=== PATIENT | female | born 1990 | race African-American/Black ===

== ENCOUNTER 2016-12-27 23:59 | Inpatient (IN) ==
[2016-12-28] MEDS ORDERED: ONDANSETRON 4 MG/2 ML VIAL IV PRN ×2 (00:10→20:12)
[2016-12-28] MEDS ORDERED: OXYTOCIN/LR 20 UNIT/1,000 ML BAG IV SCH (00:30)
[2016-12-28] MEDS: LACTATED RINGERS 1,000 ML IV SCH ×3 (00:33→17:36)
[2016-12-28 01:17] LABS: Basophils % 0.1 % (0.0-0.8); Eosinophils # 0.1 10*3/uL (0.0-0.87); Hematocrit 32.9 VOL% (35.7-47.0); Hemoglobin 11.7 GM/DL (12.0-16.0); Immature Granulocytes % 1.1 %; Immature Granulocytes Absolute 0.08 #; Lymphocytes # 1.6 10*3/uL (1.4-4.0); Lymphocytes % 21.4 % (21.3-54.2); Mean Corpuscular HGB Conc 35.6 GM/DL (32-36); Mean Corpuscular Hemoglobin 34 PG (27-34); Mean Corpuscular Volume 95.9 FL (87-102); Mean Platelet Volume 11.6 FL (9.6-12.0); Monocytes # 0.4 10*3/uL (0.11-0.8); Monocytes % 5.8 % (1.7-12.7); Neutrophils # 5.1 10*3/uL (1.4-7.4); Neutrophils % 70.6 % (38.7-73.9); Platelet Count 160 T/CUMM (130-400); Red Blood Count 3.43 MC/CUMM (3.8-5.5); Red Cell Distribution Width 12.8 % (9.3-17.3); White Blood Count 7.2 T/CUMM (4-12)
[2016-12-28 01:20] LABS: Apearance,Urine Slightly Hazy (Clear); Bilirubin,Urine Negative (Negative); Blood, Urine Negative (Negative); Calcium Oxalate Crystals,Urine Occasional /HPF (Few); Glucose,Urine (UA) Negative (Negative); Ketones,Urine Negative (Negative); Mucus,Urine Occasional /LPF (Occasional); Nitrite,Urine Negative (Negative); Protein,Urine Negative; RBC,Urine 1 /HPF (0-4); Squamous Epithelial Cell,Urine Occasional /HPF (0-10); Urine Color Yellow (Yellow); Urine Specific Gravity 1.015 (1.001-1.035); Urine Urobilinogen < 2.0 EU/DL (0.2-1.0); WBC,Urine 2 /HPF (0-6)
[2016-12-28 01:29] LABS: Albumin 2.9 G/DL (3.4-5.0); Bilirubin,Total 0.7 MG/DL (0.2-1.0); Calcium 9.1 MG/DL (8.5-10.1); Osmolality,Calculated 278.1 MOS/KG (273-304); Potassium 3.5 MMOL/L (3.5-5.1); Total Protein 6.4 G/DL (6.4-8.3)
--- NOTE | 2016-12-28 08:47 | OB/GYN History & Physical ---
History of Present Illness Chief complaint: Induction of labor at term History of present illness: Ms. Lozada is a 26 year old female Home Medications Medication Instructions Recorded Confirmed Type Vit No.130/Iron/Folic 1 each PO DAILY 10/12/16 12/28/16 History [ Vitamins] Allergies Allergy/AdvReac Type Severity Reaction Status Date / Time No Known Allergies Allergy Verified 08/30/16 13:22 12 point system: reviewed and no additional remarkable complaints except as stated Medical,Surgical,& Family Hx - Medical History Psychological: No history of: Anxiety Disorders, ADHD, Behavior Problems, Bipolar Disorder, Depression, Previous Suicide Attempt, Psychiatric/Substance Abuse Tx, Schizophrenia, Violent Behavior, Psychiatric Problems - Surgical History Cardiac Surgeries: Patient Denies: Cardiac Catheterization Thoracic Surgeries: Patient denies;: Organ Transplant, Lobectomy Neurologic Surgeries: Patient denies: Neurologic Surgery HEENT Surgeries: Patient denies: Tonsilectomy & Adenoidectomy Reproductive Surgeries: Patient denies;: Breast Surgery, Section, Dilation and Curettage, Genitourinary Surgery, Gynecologic Surgery, Hysterectomy, Tubal Ligation - Family History Family History: Reports;: Family Cancer (PT MOTHER), Family Heart Disease (MGM, PT MOTHER), Family Hypertension (PT MOTHER AND FATHER AND MGF) Denies;: Family Anesthesia Reaction, Family Diabetes, Family Hematology, Family Psychiatric Problems, Family Stroke, Additional Family History - Social History Smoking Status: Never smoker Frequency of Alcohol Use: None Type of Drug Use: None Exam ENVIRONMENTAL SERVICES TECH - Constitutional Vitals: Vital Signs Temp Pulse Resp BP 12/28/16 04:00 97.6 F 70 18 103/59 General appearance: no acute distress - Antepartum / Post Antepartum Exam Cervix - Dilatation: 3 cm Effacement: 70% Station: -3 Rupture: Artificial rupture membranes with clear fluid Presentation: Vertex Heart Rate: 150s [place]: Contractions continue a regular - Head Head exam: Present: normocephalic - Neck Neck exam: Present: normal inspection - Respiratory Respiratory exam: Present: clear to auscultation bilaterally - Cardiovascular Cardiovascular exam: Present: regular rate and rhythm - GI/Abdominal GI/Abdominal exam: Present: normal bowel sounds, soft - Extremities Exam Extremities exam: Present: normal inspection - Back Exam Back exam: Present: normal inspection - Neurological Exam Neurological exam: Present: alert, oriented X3 - Psychiatric Psychiatric exam: Present: normal affect, normal mood - Skin Skin exam: Present: normal color, warm Assessment and Plan (1) 39 weeks gestation of Status: Acute Assessment and plan: Patient AROM with clear fluid. Continue Pitocin induction of labor with expectant vaginal delivery. Pain management per patient request. Current Visit: Yes Results - Labs CBC & BMP: 12/29/16 06:28 12/28/16 00:20
[2016-12-28] MEDS: BUTORPHANOL 2 MG/ML VIAL IV PRN ×2 (11:35→14:35)
[2016-12-28] MEDS ORDERED: diphenhydrAMINE 50 MG/1 ML VIAL IV PRN (12:13)
--- NOTE | 2016-12-28 15:42 | OB/GYN Progress Note ---
Assessment and Plan (1) 39 weeks gestation of Status: Acute Assessment and plan: Patient AROM with clear fluid. Continue Pitocin induction of labor with expectant vaginal delivery. Pain management per patient request. Current Visit: Yes ISSUE CLERK - PN: Subj Interval history: No complaints Exam ISSUE CLERK - Constitutional Vitals: Vital Signs Temp Pulse Resp BP 12/28/16 04:00 97.6 F 70 18 103/59 - Antepartum / Post Antepartum Exam Cervix - Dilatation: 5 cm Effacement: 80% Station: -3 Rupture: Clear fluid Presentation: Vertex Heart Rate: 140s-150s [place]: Contractions every 2-4 minutes Results - Labs CBC & BMP: 12/28/16 00:21 12/28/16 00:20
[2016-12-28] MEDS ORDERED: MEPERIDINE 50 MG/1 ML VIAL IV PRN (17:27)
[2016-12-28] MEDS ORDERED: OXYTOCIN/LR 20 UNIT/1,000 ML BAG IV ONE (19:00)
[2016-12-28] MEDS ORDERED: MEASLES/MUMPS/RUBELLA VACCINE 0.5 ML VIAL SUBCUT ONE (20:12)
[2016-12-28] MEDS ORDERED: oxyCODONE/ACETAMINOPHEN 5-325 MG TABLET PO PRN (20:12)
[2016-12-28] MEDS ORDERED: LANOLIN 50% CREAM 0.3 OZ TUBE TOP PRN (20:12)
[2016-12-28] MEDS ORDERED: HYDROCORTISONE 2.5% RECTAL CREAM 30 GM TUBE TOP PRN (20:12)
[2016-12-28] MEDS ORDERED: BENZOCAINE 20%/MENTHOL 0.5% SPRAY 56 GM CAN TOP PRN (20:12)
[2016-12-28] MEDS ORDERED: DIPH/TET/ACEL PERT BOOSTER VACCINE 0.5 ML VIAL IM ONE (20:12)
[2016-12-28] MEDS ORDERED: IBUPROFEN 800 MG TABLET PO PRN (20:12)
[2016-12-28] MEDS ORDERED: ACETAMINOPHEN 325 MG TABLET PO PRN (20:12)
[2016-12-28] MEDS ORDERED: WITCH HAZEL PADS 100/JAR TOP PRN (20:12)
[2016-12-28] MEDS ORDERED: BISACODYL 10 MG SUPP RECTAL PRN (20:12)
[2016-12-28] MEDS: oxyCODONE/ACETAMINOPHEN 5-325 MG TABLET PO PRN (20:25)
[2016-12-29 06:48] LABS: Basophils % 0.2 % (0.0-0.8); Eosinophils # 0.1 10*3/uL (0.0-0.87); Eosinophils % 0.5 % (0.00-10.9); Hemoglobin 10.3 GM/DL (12.0-16.0); Immature Granulocytes % 0.5 %; Immature Granulocytes Absolute 0.07 #; Lymphocytes # 1.3 10*3/uL (1.4-4.0); Lymphocytes % 9.5 % (21.3-54.2); Mean Corpuscular HGB Conc 34.3 GM/DL (32-36); Mean Corpuscular Hemoglobin 33 PG (27-34); Mean Corpuscular Volume 96.2 FL (87-102); Mean Platelet Volume 10.9 FL (9.6-12.0); Monocytes # 0.9 10*3/uL (0.11-0.8); Monocytes % 6.5 % (1.7-12.7); Neutrophils % 82.8 % (38.7-73.9); Platelet Count 141 T/CUMM (130-400); Red Blood Count 3.12 MC/CUMM (3.8-5.5); Red Cell Distribution Width 12.8 % (9.3-17.3); White Blood Count 13.3 T/CUMM (4-12)
[2016-12-29] MEDS: DOCUSATE SODIUM 100 MG CAPSULE PO SCH ×3 (06:50→20:07)
--- NOTE | 2016-12-29 09:13 | OB/GYN Progress Note ---
Assessment and Plan (1) 39 weeks gestation of Status: Acute Assessment and plan: Patient AROM with clear fluid. Continue Pitocin induction of labor with expectant vaginal delivery. Pain management per patient request. Current Visit: Yes (2) Vaginal delivery Status: Acute Assessment and plan: Routine care with discharge planning in the a.m. 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 Interval history: No complaints Exam PRACTICE PROFESSIONAL - Constitutional Vitals: Vital Signs Temp Pulse Resp BP Pulse Ox 12/29/16 07:21 96.8 F L 73 18 99/63 100 12/29/16 04:00 97.7 F 63 18 109/72 99 12/28/16 23:45 97.4 F L 71 18 104/62 95 12/28/16 22:45 71 18 110/70 98 12/28/16 21:45 69 18 107/66 98 12/28/16 20:45 98 F 86 18 120/69 99 12/28/16 20:00 97.6 F General appearance: no acute distress - Antepartum / Post Post Exam Abdomen obstetrics: Present: bowel sounds normal Vagina: Present: normal moisture Uterus exam: Present: normal size, normal contour Anus/Rectum: Present: normal perianal skin - Head Head exam: Present: normocephalic - Neck Neck exam: Present: normal inspection - Respiratory Respiratory exam: Present: clear to auscultation bilaterally - Cardiovascular Cardiovascular exam: Present: regular rate and rhythm - GI/Abdominal GI/Abdominal exam: Present: normal bowel sounds, soft (Uterus firm and well contracted at the level of the umbilicus) - Extremities Exam Extremities exam: Present: normal inspection - Back Exam Back exam: Present: normal inspection - Neurological Exam Neurological exam: Present: alert, oriented X3 - Psychiatric Psychiatric exam: Present: normal affect, normal mood - Skin Skin exam: Present: normal color, warm Results - Labs CBC & BMP: 12/29/16 06:28 12/28/16 00:20
[2016-12-29] MEDS: oxyCODONE/ACETAMINOPHEN 5-325 MG TABLET PO PRN (20:07)
[2016-12-30 07:25] VITALS: BP 107/67
--- NOTE | 2016-12-30 07:59 | Discharge Summary ---
Hospital Course - Hospital Course Hospital Course: This is a 26-year-old multiparous female admitted at 39 weeks gestation for induction of labor. Patient subsequent delivered a liveborn male infant via spontaneous vaginal delivery. She is breast-feeding and unsure of her method of contraception. Hospital course unremarkable day #2 she was eager for discharge. Diagnosis - Discharge Diagnosis (1) 39 weeks gestation of Status: Acute Discharge Plan - Discharge Data Disposition: Disch To Home/Self Care Condition at Discharge: Stable Discharge Diet: advance to your usual diet Activity: resume usual activities as tolerated, other (Pelvic rest) Hygiene: may shower Weight Bearing at Discharge: full weight bearing Driving: no restrictions Contact your physician if you experience:: fever over 101, Difficulty voiding, Redness or swelling, Nausea/Vomiting, Shortness of breath, Bleeding, pain uncontrolled by pain medications - Discharge Medications New HYDROcodone/ACETAMIN 5-325 [[place] 5-325] 2 tablet PO Q6H #30 tablet No Action Vit No.130/Iron/Folic [ Vitamins] 1 each PO DAILY - Follow Up or Referral Follow Up: Juan Stout MD [Primary Care Provider] - 1 Month - Forms/Instructions Exam - Constitutional Vitals: Period Temp Pulse Resp BP Sys/[place] Pulse Ox Last 24 Hr 97 F-98 F 73-84 18-20 105-116/57-67 97-99 General appearance: no acute distress - Head Head exam: Present: normocephalic - Neck Neck exam: Present: normal inspection - Respiratory Respiratory exam: Present: clear to auscultation bilaterally - Cardiovascular Cardiovascular exam: Present: regular rate and rhythm - GI/Abdominal GI/Abdominal exam: Present: normal bowel sounds, soft - Extremities Exam Extremities exam: Present: normal inspection - Back Exam Back exam: Present: normal inspection - Neurological Exam Neurological exam: Present: alert, oriented X3 - Psychiatric Psychiatric exam: Present: normal affect, normal mood - Skin Skin exam: Present: normal color, warm DS: Provider Date of admission: 12/28/16 00:10 Primary care physician: Juan Stout MD Attending physician on admission: Juan Stout MD Consults: 12/28/16 00:10 Consult to Anesthesiology [CONS] Routine Consulting Provider: Reason for Anesthesiology: Epidural Consult Comment: Epidural for pain managment 12/28/16 20:12 Consult to Forest Economist [CONS] Routine Consult Forest Economist: Breast Feeding Discharging clinician: Juan Stout MD
[2016-12-30] MEDS: oxyCODONE/ACETAMINOPHEN 5-325 MG TABLET PO PRN (08:11)
[2016-12-30] MEDS: DOCUSATE SODIUM 100 MG CAPSULE PO SCH (08:11)
--- NOTE | 2017-01-12 08:09 | Operative Note ---
Date of procedure: 12/28/16 Procedure Preformed: Patient delivered a liveborn [] infant via spontaneous vaginal delivery. Baby' s head was delivered in the [OA] position. The baby's nose mouth bulb suctioned the perineum. Anterior posterior shoulders followed by the body was delivered with ease. Status post internal after" was doubly clamped and cut. Cord blood was sent. Placenta was delivered spontaneously and intact with three -vessel cord. The uterus was massaged and was found to confirm a well contracted. The patient sustained [] which was repaired with 2-0 chromic. Baby and mother stable. And the procedure all sponge lap counts correct 2. Surgeon / Physician: Juan Stout Post-op diagnosis: same Findings: Liveborn infant Specimens: none sent Estimated blood loss: other (75 mL) Condition: stable Anesthesia: epidural Disposition: floor
== END 2016-12-30 11:15 | disposition home or self-care (01) | DRG 775 ==
LOC: N.LDOUT 23:59 → N.LD 12-28 00:01 → N.OB 12-28 20:45
PROVIDERS: ADMIT Obstetrics & Gynecology; ATTEND Obstetrics & Gynecology